=== PATIENT | female | born 1970 | race African-American/Black ===

== ENCOUNTER 2019-07-26 09:48 | Emergency (ER) | payer SELFPAY ==
[2019-07-26 10:03] VITALS: BMI 34.3
[2019-07-26] MEDS ORDERED: CYCLOBENZAPRINE HCL 10 MG TABLET (FP) PO ONE (10:35)
[2019-07-26] MEDS ORDERED: KETOROLAC TROMETHAMINE 60 MG/2 ML VIAL IM ONE (10:35)
[2019-07-26] MEDS ORDERED: KETOROLAC TROMETHAMINE 60 MG/2 ML VIAL ONE (10:51)
[2019-07-26] MEDS ORDERED: CYCLOBENZAPRINE HCL 10 MG TABLET (FP) ONE (10:51)
--- NOTE | 2019-07-26 11:28 | PDOC ---
History of Present Illness - General Chief Complaint: Back Pain Stated Complaint: BACK PAIN Time Seen by Provider: 07/26/19 10:34 History Source: Patient Exam Limitations: No Limitations - History of Present Illness Initial Comments: 07/26/19 11:29 49-year-old female presents to ED for complaints of low back pain rating to her left leg. Patient states had a herniated disc in December which was work-related and had an operation done at [facility]. Patient states has now switched to physical therapy to includes lifting weights of 25 pounds and last week she began to have pain to her lower back again rating down her leg. Patient states the pain was unbearable and so had went to call me at [facility] where she was prescribed muscle relaxer and Neurontin. Patient states since the pain continued and wants an answer she decided come to another ER since her doctor/ surgeon were unavailable this weekend. Patient denies saddle anesthesia, incontinence, abdominal pain but states is unable to stand straight secondary to pain causing her to bend over with ambulation. Patient denies weakness of the lower extremity but states sharp intermittent pain down her left leg causing her to buckle Occurred: reports: other Severity: reports: moderate, severe Pain Location: reports: back, lower extremity Modifying Factors: improves with: None Associated Symptoms (Fall): trouble walking Past History - Travel Traveled outside of the country in the last 30 days: No Close contact w/someone who was outside of country & ill: No - Past Medical History Allergies/Adverse Reactions: Allergies Allergy/AdvReac Type Severity Reaction Status Date / Time No Known Allergies Allergy Verified 07/26/19 09:54 Home Medications: Ambulatory Orders Cyclobenzaprine HCl [Flexeril 10 mg] 10 mg PO BID PRN 07/26/19 Gabapentin [Neurontin -] 800 mg PO Q8H 07/26/19 COPD: No Other medical history: chr back issues - Psycho Social/Smoking Cessation Hx Smoking History: Unknown if ever smoked Patient Lives Alone: No Trauma Specific PMHX - Complaint Specific PMHX Back Injury: Yes Review of Systems - Review of Systems Able to Perform ROS?: Yes Constitutional: No: Symptoms Reported HEENTM: No: Symptoms Reported Respiratory: No: Symptoms reported Cardiac (ROS): No: Symptoms Reported ABD/GI: No: Symptoms Reported : No: Symptoms Reported Musculoskeletal: Yes: Back Pain, Muscle Pain Integumentary: No: Symptoms Reported Neurological: No: Numbness, Paresthesia, Weakness, Dizziness Endocrine: No: Symptoms Reported Hematologic/Lymphatic: No: Symptoms Reported *Physical Exam - Vital Signs Last Vital Signs Temp Pulse Resp BP Pulse Ox 97.9 F 86 22 H 148/97 98 07/26/19 09:59 07/26/19 09:59 07/26/19 09:59 07/26/19 09:59 07/26/19 09:59 - Physical Exam General Appearance: Yes: Nourished, Appropriately Dressed. No: Apparent Distress HEENT: negative: Pale Conjunctivae Neck: positive: Supple. negative: Decreased range of motion Respiratory/Chest: positive: Lungs Clear, Normal Breath Sounds. negative: Respiratory Distress, Accessory Muscle Use Cardiovascular: positive: Regular Rhythm, Regular Rate. negative: Murmur Gastrointestinal/Abdominal: positive: Soft. negative: Tenderness Musculoskeletal: positive: Other (left lumbar paraspinous). negative: Vertebral Tenderness Extremity: positive: Normal Inspection. negative: Pedal Edema, Swelling, Calf Tenderness Integumentary: positive: Normal Color, Warm, Moist Neurologic: positive: Motor Strength 5/5 (able to ambulate from wheelchair to stretcher ( approx 4 steps ) without assistance) ED Treatment Course - Medications Given in the ED: ED Medications Discontinued Medications Generic Name Dose Route Start Last Admin Trade Name Mikeq PRN Reason Stop Dose Admin Cyclobenzaprine HCl 5 mg 07/26/19 10:35 07/26/19 11:00 Flexeril - PO 07/26/19 10:36 5 mg ONCE ONE Administration Ketorolac Tromethamine 60 mg 07/26/19 10:35 07/26/19 11:04 Toradol Injection - IM 07/26/19 10:36 60 mg ONCE ONE Administration Medical Decision Making - Medical Decision Making 07/26/19 11:33 Chief complaint: Low back pain rating down left leg for the past week after starting weights and physical therapy. Patient was discharged from [facility] yesterday with Neurontin and Flexeril but states did not start them as of yet because the pain is unbearable. Patient has no other complaints and is concerned that she may have re-herniated her lumbar disc. Exam: Patient with left paraspinous tenderness with sciatica nerve tenderness to the left lower extremity Plan: Toradol and Flexeril ordered. Patient offered CT but is requesting an MRI. I have explained to patient MRIs require specific criteria which patient does not meet. Patient is frustrated and requesting more pain medicine within minutes of receiving injection and tablet 07/26/19 14:46 CT shows no evidence of compression fracture or subluxation. L5-S1 mild mainly left paracentral disc bulge reaching probably slight impinging left S1 nerve root. Recommending if needed a nonemergent MRI of the lumbar spine. There is also L2-L3 minimal left paracentral/lateral disc osteophyte complex without gross nerve root impingement patient states feeling much better after receiving Percocet will discharge home with the same along with copy of CT with recommendations to receive referral for MRI Discharge - Discharge Information Problems reviewed: Yes Clinical Impression/Diagnosis: Lumbar back pain Condition: Improved Disposition: HOME - Follow up/Referral - Patient Discharge Instructions Patient Printed Discharge Instructions: DI for Low Back Pain Additional Instructions: I recommend taking Percocet as needed for pain along with Flexeril if needed. Rest. Avoid movements that trigger discomfort. Apply ice to the affected areas much as possible. Follow-up with your doctor and take copy of CT report with you - Post Discharge Activity
--- NOTE | 2019-07-26 12:43 | PDOC ---
*Physical Exam - Vital Signs Last Vital Signs Temp Pulse Resp BP Pulse Ox 97.9 F 86 22 H 148/97 98 07/26/19 09:59 07/26/19 09:59 07/26/19 09:59 07/26/19 09:59 07/26/19 09:59 - Physical Exam 07/26/19 12:40 The patient was seen and evaluated in conjunction with DANIEL Knight under my direct supervision, ancillary studies were reviewed. I independently interviewed and evaluated the patient and I agree with the plan as outlined by DANIEL Knight. 49-year-old female history of disc herniation status post surgery presents with worsening back pain in the setting of recent physical therapy. Patient notes that the back is worse than the lower back rating down her leg. Patient had been attempting to contact her surgeon and had gone to [facility] where she was evaluated had a x-ray of the spine and then was discharged with outpatient follow-up. The patient presented today to the ER with worsening pain requesting an MRI. Patient denies any focal weakness numbness or tingling, saddle anesthesia, urinary or bowel incontinence. She does endorse significant pain when she is ambulating and standing. The patient is able to ambulate (had ambulated into the ED and was sen ambulating to triage). We will start off with a CT of the spine. There is no focal neurologic deficits or weakness or other red flags to suggest cord compression, spinal epidural abscess, or other acute neurologic emergency We will treat the patient for her pain ED Treatment Course - Medications Given in the ED: ED Medications Discontinued Medications Generic Name Dose Route Start Last Admin Trade Name Freq PRN Reason Stop Dose Admin Cyclobenzaprine HCl 5 mg 07/26/19 10:35 07/26/19 11:00 Flexeril - PO 07/26/19 10:36 5 mg ONCE ONE Administration Ketorolac Tromethamine 60 mg 07/26/19 10:35 07/26/19 11:04 Toradol Injection - IM 07/26/19 10:36 60 mg ONCE ONE Administration Oxycodone/Acetaminophen 1 combo 07/26/19 11:58 07/26/19 12:05 Percocet 5/325 - PO 07/26/19 11:59 1 combo ONCE ONE Administration Medical Decision Making - Medical Decision Making pt feeling improved at discharge ct reviewed noted for bulging and possible slight impingment of cord will dc with pmd fu return precuations were discussed Discharge - Discharge Information Problems reviewed: Yes Clinical Impression/Diagnosis: Lumbar back pain Condition: Improved Disposition: HOME - Additional Discharge Information Prescriptions: Oxycodone HCl/Acetaminophen [Percocet 5-325 mg Tablet] 1 - 2 tab PO Q6H PRN #12 tab MDD 4 PRN Reason: Pain - Follow up/Referral - Patient Discharge Instructions Patient Printed Discharge Instructions: DI for Low Back Pain Additional Instructions: I recommend taking Percocet as needed for pain along with Flexeril if needed. Rest. Avoid movements that trigger discomfort. Apply ice to the affected areas much as possible. Follow-up with your doctor and take copy of CT report with you - Post Discharge Activity
[2019-07-26 16:02] VITALS: BP 138/78; PULSE 78; TEMP 98.4
== END 2019-07-26 15:45 | disposition home or self-care (01) ==
LOC: JER 09:48
PROC: 3E0233Z Introduction of Anti-inflammatory into Muscle, Percutaneous Approach (ICD-10-PCS; principal; 2019-07-26)
DX: M54.5 Low back pain (principal); Z86.69 Personal history of other diseases of the nervous system and sense organs; Z87.39 Personal history of other diseases of the musculoskeletal system and connective tissue
CPT/HCPCS: 72131-TC; 99281-25